=== PATIENT | male | born 1965 ===

== ENCOUNTER 2016-10-10 13:11 | Emergency (ER) | payer OTHER ==
[2016-10-10 13:20] VITALS: BMI 14.1
[2016-10-10 13:24] VITALS: BP 128/76; RESP 18; TEMP 98.7
--- NOTE | 2016-10-10 13:51 | C.PDOC ---
History Of Present Illness 51 y/o male presents to the ED with complaints of worsening pain and swelling to left knee x2 months. Pt states it feels "like bone on bone," worse with weight bearing. PMD aware of his symptoms. Taking unknown pain medications at home. Denies trauma, weakness, numbness or any other complaints. Time Seen by Provider: 10/10/16 13:25 Chief Complaint (Nursing): Lower Extremity Problem/Injury History Per: Patient History/Exam Limitations: no limitations Onset/Duration Of Symptoms: Days Current Symptoms Are (Timing): Worse Severity: Moderate Recent travel outside of the [place]: No Past Medical History Reviewed: Historical Data, Nursing Documentation, Vital Signs Vital Signs: Last Vital Signs Temp 98.7 F 10/10/16 13:20 Pulse 69 10/10/16 13:20 Resp 18 10/10/16 13:20 BP 128/76 10/10/16 13:20 Pulse Ox 100 10/10/16 13:52 - Medical History PMH: Sleep Apnea (uses c-pap machine) Surgical History: Back Surgery - [facility] Procedures EXC LES SOFT TISSUE NEC (11/06/14) Family History: States: Unknown Family Hx - Social History Hx Tobacco Use: No Hx Alcohol Use: Yes Hx Substance Use: No - Immunization History Hx Tetanus Toxoid Vaccination: No Hx Influenza Vaccination: No Hx Pneumococcal Vaccination: No Review Of Systems Musculoskeletal: Positive for: Other (left knee pain and swelling) Neurological: Negative for: Weakness, Numbness Physical Exam - Physical Exam Appears: Non-toxic, No Acute Distress Skin: Warm, Dry, No Rash Head: Atraumatic, Normacephalic Extremity: Normal ROM, No Tenderness, Capillary Refill (<2 seconds), No Deformity, Other (mild left knee effusion) Pulses: Left Dorsalis Pedis: Normal Neurological/Psych: Oriented x3, Normal Speech, Normal Motor, Normal Sensation ED Course And Treatment O2 Sat by Pulse Oximetry: 100 (room air) Pulse Ox Interpretation: Normal - Other Rad L KNEE X-Ray: Interpreted by Me (ALIRIO) Disposition Counseled Patient/Family Regarding: Studies Performed, Diagnosis, Need For Followup - Disposition Referrals: YOUR,PMD [Other] Cassidy Martínez MD [Staff Provider] - Disposition: HOME/ ROUTINE Disposition Time: 13:57 Condition: GOOD Prescriptions: Ibuprofen [Motrin] 600 mg PO Q6 #30 tab Instructions: Knee Pain (ED), Arthritis (ED) Print Language: PRYDEINIG - Clinical Impression Clinical Impression: Chronic knee pain - Scribe Statement The provider has reviewed the documentation as recorded by the Alvinaibisabelle Arrieta Provider Attestation: All medical record entries made by the Alvinaibisabelle were at my direction and personally dictated by me. I have reviewed the chart and agree that the record accurately reflects my personal performance of the history, physical exam, medical decision making, and the department course for this patient. I have also personally directed, reviewed, and agree with the discharge instructions and disposition.
[2016-10-10 14:12] VITALS: PULSE 71; O2SAT 97
--- NOTE | 2016-10-10 16:19 | RAD ---
Left knee three views History: Swelling. Comparison: None available. Findings: Severe patellofemoral compartment joint space narrowing with subchondral sclerosis. Moderate medial compartment joint space narrowing of the femorotibial joint space with osteophytosis and subchondral sclerosis. Productive change at the anterior tibial tubercle. Spurring of the tibial spines with a curvilinear lucency at the medial tibial spine. Small suprapatellar joint effusion. Vascular calcifications. Impression: Severe patellofemoral compartment joint space narrowing with subchondral sclerosis. Moderate medial compartment joint space narrowing of the femorotibial joint space with osteophytosis and subchondral sclerosis. Productive change at the anterior tibial tubercle. Spurring of the tibial spines with a curvilinear lucency at the medial tibial spine. Small suprapatellar joint effusion. Vascular calcifications. If pain persists, consider MRI.
== END 2016-10-10 14:12 | disposition home or self-care (01) ==
LOC: C.ER 13:11
DX: G89.29 Other chronic pain (principal); M25.562 Pain in left knee

== ENCOUNTER 2016-12-30 10:45 | Emergency (ER) | payer OTHER ==
[2016-12-30 10:46] VITALS: BMI 14.1
--- NOTE | 2016-12-30 12:40 | C.PDOC ---
History Of Present Illness 51 y/o male presents to the ED for constipation and diffuse, intermittent abdominal cramping for 3 days. States he has a Hx of constipation. Patient decided to come in today because the pain became worse, but has not taken any meds for symptoms. Patient reports no pain now. Denies fever or chills. No vomiting or nausea. Time Seen by Provider: 12/30/16 11:20 Chief Complaint (Nursing): GI Problem History Per: Patient History/Exam Limitations: no limitations Onset/Duration Of Symptoms: Days (3), Intermittent Episodes Current Symptoms Are (Timing): Still Present Severity: Mild Location Of Pain/Discomfort: Diffuse Radiation Of Pain To:: None Quality Of Discomfort: Cramping Associated Symptoms: Constipation Exacerbating Factors: None Alleviating Factors: None Recent travel outside of the [place]: No Additional History Per: Patient Past Medical History Reviewed: Historical Data, Nursing Documentation, Vital Signs Vital Signs: Last Vital Signs Temp 98.0 F 12/30/16 14:34 Pulse 66 12/30/16 14:34 Resp 20 12/30/16 14:34 BP 120/71 12/30/16 14:34 Pulse Ox 98 12/30/16 14:34 - Medical History PMH: Sleep Apnea (uses c-pap machine) Surgical History: Back Surgery - [facility] Procedures EXC LES SOFT TISSUE NEC (11/06/14) Family History: States: Unknown Family Hx - Social History Hx Tobacco Use: No Hx Alcohol Use: Yes Hx Substance Use: No - Immunization History Hx Tetanus Toxoid Vaccination: No Hx Influenza Vaccination: No Hx Pneumococcal Vaccination: No Review Of Systems Except As Marked, All Systems Reviewed And Found Negative. Constitutional: Negative for: Fever, Chills Gastrointestinal: Positive for: Abdominal Pain (Cramping.), Constipation. Negative for: Nausea, Vomiting Physical Exam - Physical Exam Appears: Non-toxic, No Acute Distress Skin: Warm, Dry Head: Atraumatic, Normacephalic Cardiovascular: Rhythm Regular Respiratory: Normal Breath Sounds, No Rales, No Rhonchi, No Wheezing Gastrointestinal/Abdominal: Soft, No Tenderness Neurological/Psych: Oriented x3 Gait: Steady ED Course And Treatment O2 Sat by Pulse Oximetry: 97 - Other Rad Abdominen obstructive series X-Ray: Viewed By Me, Read By Radiologist Interpretation: Accession No. : [id number]. Patient Name / ID : [place] / [id number]. Exam Date : 12/30/2016 11:31:27 ( Approved ). Study Comment : Sex / Age : M / 51Y. Creator : Anny Telles MD. Dictator : Retort Forker : Sports Marketing Specialist : Anny Telles MD. Approver2 : Report Date : 12/30/2016 13:13:10. My Comment : . PROCEDURE: Radiographs of the chest and abdomen (obstructive series). HISTORY: constipation/cramps. COMPARISON: None available. TECHNIQUE: AP radiograph of the chest, with upright and supine radiographs of the abdomen. FINDINGS: CHEST: Heart size appears top normal. Atherosclerotic calcifications of the aortic knob. No focal consolidation, significant pleural effusion, or definite pneumothorax identified.Please note that chest x-ray has limited sensitivity for the detection of pulmonary masses. ABDOMEN AND PELVIS: Nonobstructive bowel gas pattern. Moderate to severe retained colonic fecal material within the right and proximal transverse colon. No definite free air. Degenerative changes of the shoulders and spine. IMPRESSION: Moderate to severe retained colonic fecal material within the right and proximal transverse colon. Progress Note: Plans: Abdominen obstructive series, reassess. Patient was d/c home on laxatives with PMD follow up. Disposition - Disposition Referrals: Elida Thomson MD [Staff Provider] - Disposition: HOME/ ROUTINE Disposition Time: 13:52 Condition: STABLE Additional Instructions: Follow up with PMD within 2-3 days. Return to ED if feel worse. Prescriptions: Magnesium Citrate [Citrate of Mag] 300 ml PO ONCE #1 bottle Lactulose 30 ml PO DAILY PRN #600 ml PRN Reason: Constipation Instructions: Constipation (ED) Forms: [facility] (Armenian) - Clinical Impression Clinical Impression: Constipation - Scribe Statement The provider has reviewed the documentation as recorded by the Scribe Marleni rogers All medical record entries made by the Scribe were at my direction and personally dictated by me. I have reviewed the chart and agree that the record accurately reflects my personal performance of the history, physical exam, medical decision making, and the department course for this patient. I have also personally directed, reviewed, and agree with the discharge instructions and disposition.
--- NOTE | 2016-12-30 13:14 | RAD ---
PROCEDURE: Radiographs of the chest and abdomen (obstructive series) HISTORY: constipation/cramps COMPARISON: None available TECHNIQUE: AP radiograph of the chest, with upright and supine radiographs of the abdomen. FINDINGS: CHEST: Heart size appears top normal. Atherosclerotic calcifications of the aortic knob. No focal consolidation, significant pleural effusion, or definite pneumothorax identified.Please note that chest x-ray has limited sensitivity for the detection of pulmonary masses. ABDOMEN AND PELVIS: Nonobstructive bowel gas pattern. Moderate to severe retained colonic fecal material within the right and proximal transverse colon. No definite free air. Degenerative changes of the shoulders and spine. IMPRESSION: Moderate to severe retained colonic fecal material within the right and proximal transverse colon.
[2016-12-30 14:35] VITALS: BP 120/71; PULSE 66; RESP 20; TEMP 98
[2016-12-30 18:08] VITALS: O2SAT 97
== END 2016-12-30 14:53 | disposition home or self-care (01) ==
LOC: C.ER 10:45
DX: K59.00 Constipation, unspecified (principal)

== ENCOUNTER 2018-04-12 11:59 | Emergency (ER) | payer OTHER ==
[2018-04-12 11:59] VITALS: BMI 14.1
[2018-04-12 12:50] VITALS: BP 136/82; PULSE 73; RESP 18; TEMP 97.6; O2SAT 99
--- NOTE | 2018-04-12 13:42 | C.PDOC ---
History Of Present Illness 52 yo male come in for evaluation of B/L shoulder/upper back pain gradually developed for past week. 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 Pt reports, pain is more over L then R shoulder, localized, worse with arms lifting. Otherwise, pt denies headache, dizziness, neck pain, CP, SOB, dyspnea, diaphoresis, palpitation, cough, wheezing, denies weakness, sensory or vascular deficits to B/L UEs. Ambulatory, not in any apparent distress. Time Seen by Provider: 04/12/18 12:56 Chief Complaint (Nursing): Upper Extremity Problem/Injury History Per: Patient Past Medical History Reviewed: Historical Data, Nursing Documentation, Vital Signs Vital Signs: Last Vital Signs Temp 97.6 F 04/12/18 12:44 Pulse 73 04/12/18 12:44 Resp 18 04/12/18 12:44 BP 136/82 04/12/18 12:44 Pulse Ox 99 04/12/18 12:44 - Medical History PMH: No Chronic Diseases, Sleep Apnea (uses c-pap machine) Surgical History: Back Surgery - [facility] Procedures EXC LES SOFT TISSUE NEC (11/06/14) Family History: States: Unknown Family Hx - Social History Hx Tobacco Use: No Hx Alcohol Use: Yes Hx Substance Use: No - Immunization History Hx Tetanus Toxoid Vaccination: No Hx Influenza Vaccination: No Hx Pneumococcal Vaccination: No Review Of Systems Except As Marked, All Systems Reviewed And Found Negative. Constitutional: Negative for: Fever, Chills Eyes: Negative for: Vision Change Cardiovascular: Negative for: Chest Pain, Palpitations, Edema, Light Headedness Respiratory: Negative for: Cough, Shortness of Breath, Wheezing Gastrointestinal: Negative for: Nausea, Vomiting Musculoskeletal: Positive for: Shoulder Pain, Back Pain Skin: Negative for: Rash Neurological: Negative for: Weakness, Numbness, Headache, Dizziness Physical Exam - Physical Exam Appears: Well, Non-toxic, No Acute Distress Skin: Normal Color, Warm, No Rash Head: Normacephalic Eye(s): bilateral: PERRL Neck: Normal ROM, Trachea Midline, No Midline Cervical Tenderness, No Paracervical Tenderness, No Step Off Deformity, Supple Chest: Symmetrical Cardiovascular: Rhythm Regular, No Murmur, No JVD Respiratory: No Decreased Breath Sounds, No Accessory Muscle Use, No Stridor, No Wheezing Gastrointestinal/Abdominal: Soft, No Tenderness, No Distention, No Guarding, No Rebound Back: No CVA Tenderness Extremity: Normal ROM, Tenderness (diffuse B/L superior shoulders. FAROM, no neurovascular deficits), No Deformity Neurological/Psych: Oriented x3, Normal Speech ED Course And Treatment O2 Sat by Pulse Oximetry: 99 Pulse Ox Interpretation: Normal - Radiology CXR: Interpreted by Me, Viewed By Me CXR Interpretation: Yes: No Acute Disease - Other Rad B/L shoulder X-Ray: Interpreted by Me, Viewed By Me Interpretation: B/L DJD Progress Note: On re-eval, pt is afebrile, hemodynamicay stable. NOn-toxic. Ambulatory in Ed with stable gait. PulsEOx 99% RA. Lungs: CTA B/L, BS equal B/L. CVS: (+)S1S2, reg., (-) murmur. Neuorlogicaly intact. Radiology resports review, no acute abnormalities. Pt advised ,r ef. to F/u with PMD in 2-3 days for re-eavl. return if any worsneing or new changes. Disposition Counseled Patient/Family Regarding: Studies Performed, Diagnosis, Need For Followup, Rx Given - Disposition Referrals: Elida Thomson MD [Staff Provider] - Disposition: HOME/ ROUTINE Disposition Time: 13:50 Condition: STABLE Additional Instructions: LIght duty, avoid arms lifting Avoid strenuous physical activity for 1 week Take pain medication as prescribed Follow up with PMD, Ortho in2 -3 days for re-evaluation. return if any new changes. Prescriptions: Ibuprofen [Motrin Tab] 600 mg PO BID #20 tab Methocarbamol [Robaxin] 500 mg PO TID #14 tab Instructions: Shoulder Sprain, Osteoarthritis Forms: [facility] (Italian), Work Excuse - Clinical Impression Clinical Impression: Shoulder arthritis, Back strain
--- NOTE | 2018-04-12 13:54 | RAD ---
HISTORY: Cough COMPARISON: Obstructive series performed 12/30/16 TECHNIQUE: Chest PA and lateral FINDINGS: LUNGS: Patchy retrocardiac opacity. Please note that chest x-ray has limited sensitivity for the detection of pulmonary masses. PLEURA: No significant pleural effusion identified. No definite pneumothorax . CARDIOVASCULAR: Borderline cardiomegaly. No atherosclerotic calcification present. OSSEOUS STRUCTURES: Degenerative changes. VISUALIZED UPPER ABDOMEN: Unremarkable. OTHER FINDINGS: None. IMPRESSION: Retrocardiac opacity may reflect atelectasis. Developing infiltrate not excluded in the proper clinical setting.
--- NOTE | 2018-04-12 14:04 | RAD ---
Date of service: 2018-04-12 13:33:40 PROCEDURE: Radiographs of both shoulders HISTORY: Pain COMPARISON: Comparison made with prior radiographs of the right shoulder dated 11/09/2017. FINDINGS: BONES: No evidence of acute displaced fracture nor dislocation. JOINTS: Mild degenerative osteoarthritis both shoulder girdles. SOFT TISSUES: . Small calcifications are seen within the soft tissues overlying the AC joints bilaterally.. OTHER FINDINGS: None. IMPRESSION: No evidence of acute displaced fracture nor dislocation. Mild degenerative osteoarthritis both shoulder girdles.
== END 2018-04-12 14:31 | disposition home or self-care (01) ==
LOC: C.ER 11:59
DX: M19.019 Primary osteoarthritis, unspecified shoulder (principal); S29.012A Strain of muscle and tendon of back wall of thorax, initial encounter; X58.XXXA Exposure to other specified factors, initial encounter; Y99.0 Civilian activity done for income or pay